=== PATIENT | male | born 1955 | race Caucasian/White ===

== ENCOUNTER 2023-09-12 17:12 | Emergency (ER) | payer OTHER, MEDICAID ==
[~2023-09-12] VITALS: Ht 175.3 cm; Wt 68.0 kg
[~2023-09-12 17:12] MED LIST: ACET-2619 GT; AZIT250T3 PO; CARB1TAB37 GT; ELD5 GT; KEP500L GT; OSC500 GT; ROPI2TER GT; TAM75 PO; VITA400T14 GT; [UNRECOGNIZED DRUG - CODE] GT
[2023-09-12 17:25] VITALS: BP 104/70; PULSE 70; RESP 16; TEMP 98.1; O2SAT 95
[2023-09-12 21:30] VITALS: BP 119/81; PULSE 78; RESP 18; TEMP 98.8; O2SAT 98
== END 2023-09-12 21:30 | disposition home or self-care (01) ==
LOC: MED 17:12
DX: K94.23 Gastrostomy malfunction (principal); E11.9 Type 2 diabetes mellitus without complications; I10 Essential (primary) hypertension; Z86.73 Personal history of transient ischemic attack (TIA), and cerebral infarction without residual deficits; Z98.890 Other specified postprocedural states; Z79.1 Long term (current) use of non-steroidal anti-inflammatories (NSAID); Z79.2 Long term (current) use of antibiotics; Z79.899 Other long term (current) drug therapy
CPT/HCPCS: 43762; 74240; 99284; Q9967

== ENCOUNTER 2023-10-05 22:51 | Inpatient (IN) | payer OTHER, MEDICAID ==
[~2023-10-05] VITALS: Ht 182.9 cm; Wt 640.0 kg
[2023-10-05 23:15] VITALS: BP 126/82; PULSE 104; RESP 18; TEMP 98.2; O2SAT 96
[2023-10-06] VITALS (11 sets, daily range): BP systolic 125–131; BP diastolic 80–87; PULSE 100–108; RESP 16–22; TEMP 98.1–208.8; O2SAT 93–100
[2023-10-06 00:08] LABS: BASOPHILS % (AUTO) 0.4 % (0.0-2.0); EOSINOPHILS # (AUTO) 0.2 K/uL (0-0.4); EOSINOPHILS % (AUTO) 2.1 % (0.0-4.0); HEMATOCRIT 47.6 % (36-52); HEMOGLOBIN 16.5 g/dL (12.0-18.0); LYMPHOCYTES # (AUTO) 1.9 K/uL (2.0-11.5); LYMPHOCYTES % (AUTO) 24.8 % (20.5-51.1); MEAN CORPUSCULAR HEMOGLOBIN 36 pg (27-31); MEAN CORPUSCULAR HGB CONC 35 g/dL (33-37); MEAN CORPUSCULAR VOLUME 104.6 fL (80-94); MONOCYTES # (AUTO) 1.1 K/uL (0.8-1.0); MONOCYTES % (AUTO) 14.4 % (1.7-9.3); NEUTROPHILS # (AUTO) 4.5 K/uL (1.8-7.7); NEUTROPHILS % (AUTO) 58.3 % (42.2-75.2); PLATELET COUNT (AUTO) 90 K/uL (140-450); RED BLOOD CELL COUNT(AUTO) 4.55 MIL/uL (4.20-6.10); RED CELL DISTRIBUTION WIDTH 13.7 % (11.6-13.7); WHITE BLOOD COUNT (AUTO) 7.7 K/uL (4.8-10.8)
[2023-10-06 00:24] LABS: ANION GAP 10.6 (8-16); CARBON DIOXIDE 28.2 mmol/L (21-32); CREATININE 0.7 mg/dL (0.6-1.3); POTASSIUM 3.8 mmol/L (3.5-5.1)
[2023-10-06 00:37] LABS: BILIRUBIN,DIRECT 0.9 mg/dL (0.0-0.3); TOTAL BILIRUBIN 2.1 mg/dL (0.0-1.0)
[2023-10-06 00:38] LABS: ALBUMIN 2.1 g/dL (3.4-5.0); TOTAL PROTEIN, SERUM 7.5 g/dL (6.4-8.2)
[2023-10-06 01:24] LABS: INR 1.11 (0.8-1.2); PROTHROMBIN TIME 11.6 secs (10.8-13.4)
[2023-10-06] MEDS ORDERED: MAG SULF 2000 MG/WATER PREMIX 50 ML IV PRN (10:20)
[2023-10-06] MEDS ORDERED: ONDANSETRON 4 MG/2 ML VIAL IVP PRN (10:20)
[2023-10-06] MEDS ORDERED: ALBUTEROL SULFATE/IPRATROPIU 3 ML SOL IH PRN (10:20)
[2023-10-06] MEDS ORDERED: HYDROcodone/APAP 7.5/325 MG 1 TAB GT PRN (10:20)
[2023-10-06] MEDS ORDERED: ACETAMINOPHEN 650 MG/20.3 ML UDC GT PRN (10:55)
[2023-10-06 11:48] LABS: BASOPHILS % (AUTO) 0.4 % (0.0-2.0); EOSINOPHILS # (AUTO) 0.1 K/uL (0-0.4); EOSINOPHILS % (AUTO) 1.1 % (0.0-4.0); HEMATOCRIT 45.8 % (36-52); HEMOGLOBIN 15.6 g/dL (12.0-18.0); LYMPHOCYTES # (AUTO) 1.9 K/uL (2.0-11.5); LYMPHOCYTES % (AUTO) 26.3 % (20.5-51.1); MEAN CORPUSCULAR HEMOGLOBIN 36 pg (27-31); MEAN CORPUSCULAR HGB CONC 34 g/dL (33-37); MEAN CORPUSCULAR VOLUME 105.4 fL (80-94); MONOCYTES # (AUTO) 1.1 K/uL (0.8-1.0); MONOCYTES % (AUTO) 15.8 % (1.7-9.3); NEUTROPHILS % (AUTO) 56.4 % (42.2-75.2); PLATELET COUNT (AUTO) 90 K/uL (140-450); RED BLOOD CELL COUNT(AUTO) 4.34 MIL/uL (4.20-6.10); RED CELL DISTRIBUTION WIDTH 13.7 % (11.6-13.7); WHITE BLOOD COUNT (AUTO) 7.1 K/uL (4.8-10.8)
[2023-10-06 12:10] LABS: AMYLASE 34 U/L (25-115); CHOL/HDL RATIO 2.3 (1-4.5); CHOLESTEROL 68 mg/dL (<200); FREE T4 (FREE THYROXINE) 1.77 ng/dL (0.76-1.46); HDL CHOLESTEROL 29 mg/dL (40-60); LDL (CALC) 30 mg/dL (60-100); LIPASE 20 U/L (16-77); PHOSPHORUS 3.2 mg/dL (2.5-4.9); TRIGLYCERIDES 45 mg/dL (30-150)
[2023-10-06 12:13] LABS: INR 1.11 (0.8-1.2); PARTIAL THROMBOPLASTIN TIME 32.6 secs (22-35.6); PROTHROMBIN TIME 11.5 secs (10.8-13.4)
[2023-10-06 12:17] LABS: ANION GAP 10.4 (8-16); CALCIUM 8.1 mg/dL (8.5-10.1); CARBON DIOXIDE 28.7 mmol/L (21-32); CREATININE 0.7 mg/dL (0.6-1.3); POTASSIUM 4.1 mmol/L (3.5-5.1)
[2023-10-06 12:18] LABS: LACTIC ACID 3.8 mmol/L (0.4-2.0)
[2023-10-06 12:56] LABS: THYROID STIMULATING HORMONE 5.32 uIU/mL (0.34-3.74)
[2023-10-06] MEDS ORDERED: ROPINIROLE HCL 1 MG GT SCH (13:00)
[2023-10-06] MEDS: ALBUTEROL SULFATE/IPRATROPIU 3 ML SOL IH SCH (13:49)
[2023-10-06] MEDS: NACL 0.9% 1,000 ML IV SCH (14:26)
[2023-10-06] MEDS: rOPINIRole 1 MG TAB GT SCH (14:31)
[2023-10-06] MEDS: SENNA 8.6 MG TAB GT SCH (14:35)
[2023-10-06] MEDS: SELEGILINE 5 MG TAB GT SCH (14:35)
[2023-10-06] MEDS: LIDOCAINE MPF 1% 5 ML ONE (16:00)
[2023-10-06] MEDS: SUPREP BOWEL PREP KIT 354 ML SOLN.RECON PO SCH (18:35)
[2023-10-06 21:14] LABS: SPECIMENTYPE,BODY FLUID PARACENTESIS
[2023-10-06 21:15] LABS: APPEARANCE,UNSPUN,BODY FLUID CLOUDY (CLEAR); TOTAL VOLUME,BODY FLUID 2010 mL
[2023-10-06] MEDS: DOCUSATE 100 MG/10 ML UDC GT SCH (21:17)
[2023-10-06] MEDS: LACTULOSE 20 GM/30 ML UDC PO SCH (21:17)
[2023-10-06] MEDS: levETIRAcetam 100 MG/ML ORASYR GT SCH (21:17)
[2023-10-06] MEDS: CARBIDOPA/LEVODOPA 25/100 MG 1 TAB GT SCH (21:21)
[2023-10-06 21:40] LABS: GLUCOSE,BODY FLUID 102 mg/dL
[2023-10-06 22:30] LABS: APPEARANCE,SPUN,BODY FLUID HAZY (CLEAR); COLOR,BODY FLUID LT YELLOW (LT YELLOW); POLYNUCLEAR, BODY FLUID 76 %; RBC, BODY FLUID 225 /cu. mm.; WBC, BODY FLUID 36 /cu. mm.
[2023-10-07] VITALS (7 sets, daily range): BP systolic 117–138; BP diastolic 72–84; PULSE 95–107; RESP 16–23; TEMP 96.8–98.8; O2SAT 94–99
[2023-10-07 02:55] LABS: APPEARANCE,URINE CLEAR (CLEAR); BILIRUBIN,URINE 1+ (NEGATIVE); BLOOD, URINE NEGATIVE (NEGATIVE); COLOR,URINE YELLOW (YELLOW); LEUKOCYTE ESTERASE ,URINE TRACE (NEGATIVE); NITRITE, URINE NEGATIVE (NEGATIVE); PH,URINE 5.5 (5.0-9.0); PROTEIN,URINE NEGATIVE (NEGATIVE); UGLUCOSE NEGATIVE (NEGATIVE)
[2023-10-07 02:56] LABS: ICTOTEST POSITIVE (NEGATIVE)
[2023-10-07 02:58] LABS: BACTERIA,URINE 10-30 (MOD) /HPF (None Seen); MUCUS,URINE 1+ /LPF (None Seen); RBC,URINE 0-5 /HPF (0-5); SQUAMOUS EPITHELIAL CELL,UR 0-3 (FEW) /LPF (0-3 (FEW))
[2023-10-07 03:47] LABS: AMPHETAMINE, URINE NEGATIVE ng/ml (NEG <=1000); BARBITURATE, URINE NEGATIVE ng/ml (NEG <=200); BENZODIAZEPINE, URINE NEGATIVE ng/mL (NEG <=200); CANNABINOID, URINE NEGATIVE ng/mL (NEG <=50); COCAINE, URINE NEGATIVE ng/mL (NEG <=300); OPIATE, URINE NEGATIVE ng/mL (NEG <=2000); PHENCYCLIDINE SCREEN,URINE NEGATIVE ng/mL (NEG <=25)
[2023-10-07 07:33] LABS: HEMATOCRIT 45.3 % (36-52); HEMOGLOBIN 15.4 g/dL (12.0-18.0); MEAN CORPUSCULAR HEMOGLOBIN 36 pg (27-31); MEAN CORPUSCULAR HGB CONC 34 g/dL (33-37); MEAN CORPUSCULAR VOLUME 105.8 fL (80-94); PLATELET COUNT (AUTO) 102 K/uL (140-450); RED BLOOD CELL COUNT(AUTO) 4.28 MIL/uL (4.20-6.10); RED CELL DISTRIBUTION WIDTH 13.6 % (11.6-13.7); WHITE BLOOD COUNT (AUTO) 7.3 K/uL (4.8-10.8)
[2023-10-07 07:40] LABS: ANION GAP 13.9 (8-16); CALCIUM 8.1 mg/dL (8.5-10.1); CARBON DIOXIDE 27.8 mmol/L (21-32); CREATININE 0.8 mg/dL (0.6-1.3)
[2023-10-07 08:02] LABS: MAGNESIUM 1.9 mg/dL (1.8-2.4); PHOSPHORUS 3.2 mg/dL (2.5-4.9)
[2023-10-07 08:09] LABS: POTASSIUM 2.7 mmol/L (3.5-5.1)
[2023-10-07 08:42] LABS: BASOPHILS % (MANUAL) 0 % (0-2); BLASTS, MANUAL % 0 % (0-0); EOSINOPHILS % (MANUAL) 1 % (0-4); LYMPHOCYTES % (MANUAL) 17 % (20-46); METAMYELOCYTES % 0 % (0-0); MONOCYTES % (MANUAL) 16 % (5-12); MYELOCYTES % 0 % (0-0); PROMYELOCYTES % 0 % (0-0)
[2023-10-07] MEDS: PANTOPRAZOLE 40 MG INJ VIAL IVP SCH (10:32)
[2023-10-07] MEDS: CHOLECALCIFEROL 1,000 IU TAB GT SCH (10:33)
[2023-10-07] MEDS: CALCIUM CARBONATE 500 MG TAB GT SCH (10:34)
[2023-10-07] MEDS: POTASSIUM CHLORIDE 10 MEQ TABER PO PRN (10:38)
[2023-10-07] MEDS: SPIRONOLACTONE 50 MG TAB PO SCH (13:58)
[2023-10-07] MEDS: SENNA 8.6 MG TAB GT SCH (14:00)
[2023-10-07] MEDS: POTASSIUM CHLORIDE 20% 40 MEQ/15 ML UDC GT SCH (15:04)
[2023-10-08] VITALS (9 sets, daily range): BP systolic 130–145; BP diastolic 70–99; PULSE 91–115; RESP 16–22; TEMP 97–99.2; O2SAT 93–99
[2023-10-08 07:19] LABS: BASOPHILS % (AUTO) 0.5 % (0.0-2.0); EOSINOPHILS % (AUTO) 0.4 % (0.0-4.0); LYMPHOCYTES # (AUTO) 1.5 K/uL (2.0-11.5); LYMPHOCYTES % (AUTO) 17.3 % (20.5-51.1); MEAN CORPUSCULAR HEMOGLOBIN 37 pg (27-31); MEAN CORPUSCULAR HGB CONC 35 g/dL (33-37); MEAN CORPUSCULAR VOLUME 105.2 fL (80-94); MONOCYTES # (AUTO) 1.3 K/uL (0.8-1.0); MONOCYTES % (AUTO) 15.4 % (1.7-9.3); NEUTROPHILS # (AUTO) 5.7 K/uL (1.8-7.7); NEUTROPHILS % (AUTO) 66.4 % (42.2-75.2); PLATELET COUNT (AUTO) 101 K/uL (140-450); RED BLOOD CELL COUNT(AUTO) 4.37 MIL/uL (4.20-6.10); RED CELL DISTRIBUTION WIDTH 13.7 % (11.6-13.7); WHITE BLOOD COUNT (AUTO) 8.6 K/uL (4.8-10.8)
[2023-10-08 07:32] LABS: ANION GAP 13.7 (8-16); CALCIUM 7.9 mg/dL (8.5-10.1); CARBON DIOXIDE 26.9 mmol/L (21-32); CREATININE 0.8 mg/dL (0.6-1.3)
[2023-10-08 07:39] LABS: PHOSPHORUS 2.5 mg/dL (2.5-4.9)
[2023-10-08 07:45] LABS: POTASSIUM 2.6 mmol/L (3.5-5.1)
[2023-10-08] MEDS: KCL 20 MEQ IN 100 mL PREMIX 200 ML IV ONE (08:15)
[2023-10-08] MEDS: LACTULOSE 20 GM/30 ML UDC GT SCH ×2 (08:16→21:37)
[2023-10-08] MEDS: POTASSIUM CHLORIDE 20% 40 MEQ/15 ML UDC GT SCH (08:17)
[2023-10-08] MEDS: FUROSEMIDE 40 MG TAB PO SCH (08:18)
[2023-10-08] MEDS: SPIRONOLACTONE 50 MG TAB PO SCH (08:19)
[2023-10-08] MEDS: FUROSEMIDE 20 MG TAB PO SCH (08:20)
[2023-10-08] MEDS ORDERED: POTASSIUM CHLORIDE 20% 40 MEQ/15 ML UDC GT SCH (09:00)
[2023-10-08] MEDS ORDERED: POTASSIUM CHLORIDE 20% 40 MEQ/15 ML UDC GT ONE (11:20)
[2023-10-08] MEDS: MUPIROCIN CA NASAL 2% 1GM TUBE NS SCH (12:17)
[2023-10-08] MEDS: CHLORHEXADINE GLUC 2% CLOTH TP SCH (13:00)
[2023-10-08 18:05] LABS: ANION GAP 13.6 (8-16); CALCIUM 8.2 mg/dL (8.5-10.1); CARBON DIOXIDE 26.8 mmol/L (21-32); CREATININE 0.9 mg/dL (0.6-1.3); POTASSIUM 3.4 mmol/L (3.5-5.1)
[2023-10-08] MEDS ORDERED: LACTULOSE 20 GM/30 ML UDC GT SCH (21:00)
[2023-10-09] VITALS (10 sets, daily range): BP systolic 83–142; BP diastolic 49–98; PULSE 108–137; RESP 14–37; TEMP 97.4–98.6; O2SAT 93–98
[2023-10-09 07:03] LABS: BASOPHILS # (AUTO) 0.1 K/uL (0.00-0.22); BASOPHILS % (AUTO) 0.5 % (0.0-2.0); EOSINOPHILS # (AUTO) 0.1 K/uL (0-0.4); EOSINOPHILS % (AUTO) 0.8 % (0.0-4.0); HEMATOCRIT 47.4 % (36-52); HEMOGLOBIN 16.5 g/dL (12.0-18.0); LYMPHOCYTES # (AUTO) 1.6 K/uL (2.0-11.5); LYMPHOCYTES % (AUTO) 16.6 % (20.5-51.1); MEAN CORPUSCULAR HEMOGLOBIN 37 pg (27-31); MEAN CORPUSCULAR HGB CONC 35 g/dL (33-37); MEAN CORPUSCULAR VOLUME 106.3 fL (80-94); MONOCYTES # (AUTO) 1.5 K/uL (0.8-1.0); MONOCYTES % (AUTO) 15.1 % (1.7-9.3); NEUTROPHILS # (AUTO) 6.6 K/uL (1.8-7.7); PLATELET COUNT (AUTO) 102 K/uL (140-450); RED BLOOD CELL COUNT(AUTO) 4.46 MIL/uL (4.20-6.10); WHITE BLOOD COUNT (AUTO) 9.8 K/uL (4.8-10.8)
[2023-10-09 07:12] LABS: ANION GAP 13.7 (8-16); CALCIUM 8.1 mg/dL (8.5-10.1); CARBON DIOXIDE 25.6 mmol/L (21-32); POTASSIUM 3.3 mmol/L (3.5-5.1)
[2023-10-09 07:37] LABS: MAGNESIUM 2.2 mg/dL (1.8-2.4); PHOSPHORUS 2.4 mg/dL (2.5-4.9)
[2023-10-09] MEDS: POTASSIUM CHLORIDE 20% 40 MEQ/15 ML UDC GT PRN (11:24)
[2023-10-09] MEDS: ALBUMIN HUMAN 25% 50 ML IV ONE (20:50)
[2023-10-09] MEDS: ALBUMIN HUMAN 25% 100 ML IV ONE (20:54)
[2023-10-09 22:59] LABS: ANION GAP 24.6 (8-16); CALCIUM 8.6 mg/dL (8.5-10.1); CARBON DIOXIDE 17.1 mmol/L (21-32); POTASSIUM 4.7 mmol/L (3.5-5.1)
[2023-10-09] MEDS: MORPHINE SULFATE 50 MG in NACL 0.9% 45 ML IV PRN (23:17)
[2023-10-09] MEDS: MORPHINE SULFATE 10 MG/ML VIAL ONE (23:18)
== END 2023-10-09 23:44 | DRG 432 ==
LOC: MED 22:51 → MTU 10-06 05:31
PROC: 0W9G3ZZ Drainage of Peritoneal Cavity, Percutaneous Approach (ICD-10-PCS; principal; 2023-10-06)
DX: K74.60 Unspecified cirrhosis of liver (principal); E43 Unspecified severe protein-calorie malnutrition; G93.41 Metabolic encephalopathy; J90 Pleural effusion, not elsewhere classified; I69.354 Hemiplegia and hemiparesis following cerebral infarction affecting left non-dominant side; R18.8 Other ascites; Z68.1 Body mass index [BMI] 19.9 or less, adult; E87.20 Acidosis, unspecified; K76.82 Hepatic encephalopathy; G20.A1 Parkinson's disease without dyskinesia, without mention of fluctuations; K56.41 Fecal impaction; E87.6 Hypokalemia; E11.9 Type 2 diabetes mellitus without complications; I10 Essential (primary) hypertension; Z74.01 Bed confinement status; Z93.1 Gastrostomy status; Z79.899 Other long term (current) drug therapy
CPT/HCPCS: 36415; 49083; 71045; 76604; 76700; 76705; 80048; 80076; 80305; 81001; 82105; 82140; 82150; 82945; 82948; 83036; 83605; 83615; 83690; 83735; 83880; 84100; 84157; 84439; 84443; 84484; 85025; 85610; 85730; 87040; 87070; 87075; 87081; 87086; 87205; 88305; 88313; 88342; 89051; 94640; 99285; J2001; J2270; J2470; J3480; P9046; Q0092